=== PATIENT | female | born 1975 | race Caucasian/White ===

== ENCOUNTER 2016-09-03 15:09 | Emergency (ER) | payer SELFPAY ==
[2016-09-03 15:24] VITALS: BMI 49.1
[2016-09-03] MEDS ORDERED: METHYLPREDNISOLONE 125 MG/2 ML VIAL IM ONE (16:00)
[2016-09-03] MEDS ORDERED: ALBUTEROL 0.083% 3 ML NEB NEB ONE (16:00)
[2016-09-03] MEDS ORDERED: Albuterol/Ipratropium Neb 3 ML NEB NEB ONE (16:00)
--- NOTE | 2016-09-03 16:03 | EDPRACDOC ---
- General Information Chief Complaint: Flu-Like Symptoms Stated Complaint: SHOB Time Seen by Provider: 09/03/16 15:57 Mode Of Arrival: Car Home Medications: Home Medications Acetaminophen with Codeine [TYLENOL WITH CODEINE; [employer] with Codeine] 5 ml PO Q6H PRN #120 ml 09/03/16 Albuterol Sulfate 2.5 mg IH Q4-6H PRN #1 box 09/03/16 Amoxicillin Trihydrate [Amoxicillin] 500 mg PO TID #21 tab 09/03/16 Prednisone [Deltasone, Orasone] 20 mg PO DAILY #20 tab 09/03/16 Allergies/Adverse Reactions: Allergies Allergy/AdvReac Type Severity Reaction Status Date / Time No Known Allergies Allergy Verified 09/03/16 16:15 - History of Present Illness Onset: 3 days HPI: Pt c/o earache, sore throat, congestion, cough, sob, headache x 3 days. Hx Asthma. Denies cp, abd pain, n/v, changes in bowel or bladder. Shortness of Breath: Moderate Relevant History: Reports: Asthma Cough: Reports: Non-productive Rhinorrhea: Reports: Clear Ear Symptoms: Reports: Earache SOB Worsens with: Reports: Coughing SOB Improves with: Reports: Nothing Associated Signs and symptoms: Reports: Cough, Earache, Nasal Symptoms, Sore Throat ED Past Medical History - History Reviewed Yes Nurses notes reviewed and agree except as marked - Patient Medical History Respiratory History: Reports: Asthma - Social Medical History Smoking Status: Former smoker ETOH: None Substance Abuse: None EDM Review of Systems - Review of Systems Constitutional: No Symptoms Reported. negative: Fever, Chills, Weakness, Fatigue, Loss of Appetite Ears: Pain. negative: No Symptoms Reported, Drainage, Ear Pulling, Hearing Loss Throat: Pain Nose: Congestion Mouth: No Symptoms Reported. negative: Pain, Drooling Respiratory: Cough, Shortness of Breath Cardiovascular: No Symptoms Reported. negative: Chest Pain, Palpitations, Syncope, Edema, Orthopnea, PND, Skin Mottling, Cyanosis Gastrointestinal: No Symptoms Reported. negative: Pain, Constipation, Nausea, Vomiting, Diarrhea, Melena, Formula Intolerance Genitourinary: No Symptoms Reported. negative: Dysuria, Hematuria, Frequency, Discharge, Bleeding, Testicular Pain, Neurological: No Symptoms Reported. negative: Headache, Dizziness, Seizure, Numbness, Weakness, Speech Difficulty, Gait Difficulty Musculoskeletal: No Symptoms Reported. negative: Neck, Chestwall, Ribs, Back, Shoulder, Arm, Elbow, Forearm, Wrist, Hand, Pelvis, Hip, Femur, Knee, Leg, Ankle , Foot Integumentary: No Symptoms Reported. negative: Itching, Rash, Bruising, Wound Allergic/Immunologic: No Symptoms Reported. negative: Hives, Itching Hematologic: No Symptoms Reported. negative: Lymphadenopathy, Easy Bruising, Easy Bleeding Psychiatric: No Symptoms Reported. negative: Anxiety, Depression, Hallucinations, Insomnia, Suicidal - Physical Exam Constitutional: Alert Oriented to: Time, Person, Place Last recorded Vital Signs: Last Vital Signs Temp 99.3 F 09/03/16 15:22 Pulse 114 09/03/16 15:22 Resp 20 09/03/16 15:22 BP 167/97 09/03/16 15:22 Pulse Ox 92 09/03/16 15:22 Oxygen Pulse Oxygen Saturation 92 O2 Device Room Air Oxygen Flow Rate Fraction of Inspired Oxygen ( FIO2) - HEENT Head: Normal ( normocephalic) Eye Exam: Normal (PERRL, EOMI, Sclera white) Oropharynx: Normal (Pharynx:Moist without exudate,Gums-no swelling) Tympanic Membrane: Bulging (BIlateral), Redness (bilateral) ENT EAC: Normal Nose: Congestion Neck: Normal (FROM, trachea at midline) - Respiratory/Cardiovascular Respiratory: Wheezes Cardiovascular: Tachycardia - GI Auscultation: Normal (NABS) Palpation: Normal (Soft,No rebound or guarding, non distended) Tenderness: Non tender - Musculoskeletal Back: Normal (Non-Tender) Extremities: Normal (Normal tone, Pulses 2+ No cyanosis or edema, FROM) - Integumentary Skin: Normal, Warm, Dry Lymphatics: Normal (no adenopathy) - Neurologic Memory Impaired: Normal Motor Function: Normal (Normal tone, Pulses 2+ No cyanosis or edema, FROM) Mood Description: Normal Perception: Normal ED SOB MDM - Differential Diagnosis Differential Diagnosis: Asthma, Pnuemonia, URI, Other (bronchitis, sinusitis) - Re-evaluation Re-evaluation 1 Re-evaluation Time: 16:38 (improved) - Diagnostic Imaging Chest Image interpreted by: Radiologist Diagnostic Imaging Comments: IMPRESSION: No active cardiopulmonary disease. Decision Time to Discharge: 16:38 - Departure Disposition: Home Condition: Good Final Diagnosis: Acute bronchitis, Acute sinusitis Instructions: Sinusitis (ED), Acute Bronchitis (ED) Education/Counseling Given To: Patient Education/Counseling Given Regarding: Diagnosis, Treatment, Follow Up Referrals: None,No Provider [Primary Care Provider] - One Week Lázaro Mendoza II, MD [Staff Physician] - One Week Prescriptions: New Acetaminophen with Codeine [TYLENOL WITH CODEINE; [employer] with Codeine] 5 ml PO Q6H PRN #120 ml PRN Reason: Cough Albuterol Sulfate 2.5 mg IH Q4-6H PRN #1 box PRN Reason: Shortness Of Breath Amoxicillin Trihydrate [Amoxicillin] 500 mg PO TID #21 tab Prednisone [Deltasone, Orasone] 20 mg PO DAILY #20 tab Additional Instructions: Return for worse or different symptoms.
[2016-09-03 16:15] VITALS: BP 185/106; PULSE 106; TEMP 98.9
--- NOTE | 2016-09-03 16:15 | DIRPT ---
CLINICAL DATA: Cough, shortness of breath for 3 days. EXAM: CHEST 2 VIEW COMPARISON: None. FINDINGS: The heart size and mediastinal contours are within normal limits. There is no focal infiltrate, pulmonary edema, or pleural effusion. The visualized skeletal structures are unremarkable. IMPRESSION: No active cardiopulmonary disease. Electronically Signed By: Robert Olmstead M.D. On: 09/03/2016 16:12
== END 2016-09-03 16:46 | disposition home or self-care (01) ==
LOC: EDMC 15:09
DX: J20.9 Acute bronchitis, unspecified (principal); J01.90 Acute sinusitis, unspecified
CPT/HCPCS: 71020; 94640; 96372; 99282; J2930; J3490; J7620